=== PATIENT | female | born 1940 | race Caucasian/White ===

== ENCOUNTER 2019-07-28 06:54 | Outpatient (CLI) | payer MEDICARE ==
[~2019-07-28] VITALS: Ht 160 cm; Wt 61.4 kg
--- NOTE | ~2019-07-28 | HEMODYNAMI ---
PATIENT:AGUSTIN GILMORE MEDICAL RECORD: [id number] : 36 LOCATION:[facility] ADMISSION DATE: 07/28/19 Generatedon:07/28/20199:33 Patient name: AGUSTIN GILMORE Patient #: [id number] : 1940 Date of study: 07/28/2019 Page: Of Hemodynamic Procedure Report Patient Data Patient Demographics Procedure consent was obtained First Name: AGUSTIN Gender: Female Last Name: MANDO : 1940 Patient #: [id number] Age: 78 year(s) Race: Unknown SSN: [id number] Additional ID: [id number] Contact details Address: [address] [place] [address] State: [place] City: [place] Zip code: [address] Admission Admission Data Admission Date: 07/28/2019 Admission Time: 6:54 Admit Source: Other Insurance Payor: Medicare Height (in.): 63 BSA: 1.66 (m2) Height (cm.): 160.02 BMI: 24.62 (kg/m2) Weight (lbs.): 139 Weight (kg.): 63.05 Lab Results Lab Result Date: 07/28/2019 Lab Result Time: 0:00 Biochemistry Name Units Result Min Max BUN mg/dl 19 --(----)*- 7 18 Creatinine mg/dl 0.7 --(*---)-- 0.6 1.3 CBC Name Units Result Min Max Hemoglobin g/dl 12.8 -*(----)-- 13.5 17.5 Procedure Procedure Types Cath Procedure Diagnostic Procedure [facility] w/Coronaries Sedation Charges Moderate Sedation up to 15 minutes PCI Procedure Coronary Stent Coronary Stent Initial Procedure Description Procedure Date Procedure Date: 07/28/2019 Procedure Start Time: 8:56 Procedure End Time: 9:30 Procedure Staff Name Function Jaren Casper MD Performing Physician Roz Batista RN Nurse Renetta Mckinley RT Will Sanchez RT Monitor Procedure Data Cath Procedure Fluoroscopy Diagnostic fluoroscopy Total fluoroscopy Time: 3.8 time: 3.8 min min Diagnostic fluoroscopy Total fluoroscopy dose: 470 dose: 470 mGy mGy Contrast Material Contrast Material Type Amount (ml) Isovue 300 102 Entry Location Entry Primary Successful Side Size Upsize Upsize Entry Closure Succes sful Closure Location (Fr) 1 (Fr) 2 (Fr) Remarks Device Remarks Femoral Right 5 Fr 6 Fr Exoseal artery Short Estimated blood loss: 10 ml Diagnostic catheters Device Type Used For End Catheter Placement MULTIPACK JL 4.0 5Fr Procedure catheter MULTIPACK 3DRC 5Fr Procedure catheter MULTIPACK Pigtail 5 Fr Procedure catheter Procedure Complications No complications Procedure Medications Medication Administration Route Dosage 0.9% NaCl I.V. 100 ml/hr Oxygen etCO2 Nasal cannula 2 l/min Lidocaine 2% added to field 20 Heparin Flush Bag added to field 2 bags (1000units/500ml NS) Versed I.V. 2 mg Fentanyl I.V. 50 mcg Fentanyl I.V. 50 mcg Versed I.V. 1 mg Heparin Bolus I.V. 6000 units Plavix P.O. 600 mg Hemodynamics Rest BSA: 1.66 (m2) HGB: 12.8 (g/dl) O2 Consumption: Estimated: 156.34 (ml/min) O2 Co nsumption indexed: Estimated:94.18 (ml/min/m) Heart Rate: 81 (bpm) Pressure Samples Time Site Value (mmHg) Purpose Heart Use Rate(bpm) 9:05 LV 159/2,19 Snapshot 59 9:09 AO 168/67(111) Snapshot 79 Gradients Valve Time Site Site Mean SEP/DFP Peak To Heart Use 1 2 (mmHg) (sec/min) Peak Rate (mmHg) (bpm) Aortic 9:06 LV AO 78 Snapshots Pre Cath Intra NCS Post Cath Vital Signs Time Heart Resp SPO2 etCO2 NIBP (mmHg) Rhythm Pain Sedation Rate (ipm) (%) (mmHg) Status Level (bpm) 8:40:03 77 20 98 43 180/79(137) NSR 0 (11) 10(A) , No pain 8:44:24 77 13 100 44.4 167/80(142) NSR 0 (11) 10(A) , No pain 8:48:50 70 14 100 42.1 142/70(110) NSR 0 (11) 10(A) , No pain 8:53:10 68 16 100 29.3 129/61(95) NSR 0 (11) 10(A) , No pain 8:57:22 70 17 100 34.6 148/68(110) NSR 0 (11) 10(A) , No pain 9:01:36 79 14 100 45.9 159/83(124) NSR 0 (11) 10(A) , No pain 9:06:00 69 12 100 40.6 141/66(101) NSR 0 (11) 9(A) , No pain 9:10:14 77 13 100 41.4 152/75(108) NSR 0 (11) 9(A) , No pain 9:14:32 72 19 100 15 102/47(83) NSR 0 (11) 9(A) , No pain 9:18:40 73 15 99 39.9 113/54(88) NSR 0 (11) 10(A) , No pain 9:23:47 72 15 98 19.5 128/57(97) NSR 0 (11) 10(A) , No pain Medications Time Medication Route Dose Verified Delivered Reason Notes Effectiveness by by 8:41:24 0.9% NaCl I.V. 100 Jaren Roz used for ml/hr Tremayne Batista automat car attendant 8:41:30 Oxygen etCO2 2 Jaren Roz used for Nasal l/min Tremayne Batista procedure cannula RN 8:41:35 Lidocaine 2% added 20ml Jaren Jaren for local to vial Tremayne Casper MD anesthetic field 8:41:39 Heparin Flush added 2 Jaren Jaren used for Bag to bags Tremayne Casper MD procedure (1000units/500ml field NS) 8:53:48 Versed I.V. 2 mg Jaren Roz for sedation Tremayne Batista RN 8:53:53 Fentanyl I.V. 50 Jaren Roz for sedation mcg Tremayne Batista RN 9:00:21 Fentanyl I.V. 50 Jaren Roz for sedation mcg Tremayne Batista RN 9:00:28 Versed I.V. 1 mg Jaren Roz for sedation Tremayne Batista RN 9:13:03 Heparin Bolus I.V. 6000 Jaren Roz for verifi ed units Tremayne Batista anticoagulation with Dr. LATRELL Casper 9:21:01 Plavix P.O. 600 Jaren Roz for mg Tremayne Batista antiplatelet RN therapy Procedure Log Time Note 8:22:38 Patient Height : 63 inches 8:22:44 Patient Weight : 139 lbs 8:22:58 Insurance Payor : Medicare 8:22:59 Admit Source: Other 8:23:54 Lab Result : Hemoglobin 12.8 g/dl 8:23:54 Lab Result : Creatinine 0.7 mg/dl 8:23:54 Lab Result : BUN 19 mg/dl 8:24:31 Procedure Status Elective Heart Cath (OP). 8:24:33 Renetta Elías RT(R) sent for patient. Start room use. 8:25:05 Time tracking: Regular hours (M-F 7:00 - 5:00) 8:25:10 Plan of Care:Hemodynamics will remain stable., Cardiac rhythm will remain stable., Comfort level will be maintained., Respiratory function will remain adequate., Patient/ family verbilizes understanding of procedure., Procedure tolerated without complication., Recovers from procedure without complications.. 8:25:25 1) 90+ Normal kidney functon but urine findings or structural abnormalities or genetic trait point to kidney disease. 8:25:46 Maximum allowable contrast dose (3.7 X eGFR X 0.75)250 ml. 8:38:44 Patient received from Pre/Post Procedure Room to CCL 2 Alert and oriented. Tansferred to table in Supine position. 8:38:46 Signed procedure consent form obtained from patient. 8:38:47 Warm blankets applied, and suma hugger turned on for patient comfort. 8:38:48 Correct patient and procedure confirmed by team. 8:38:48 ECG and BP/O2 sat monitors applied to patient. 8:38:49 Vital chart was started 8:38:50 Baseline sample Acquired. 8:38:55 Rhythm: sinus rhythm 8:38:57 Full Disclosure recording started 8:39:01 H&P Date Dictated: 07/28/2019 Within 30 days and on chart., H&P Addendum completed by physician on day of procedure. (MUST COMPLETE FOR ALL OUTPATIENTS). 8:39:03 Pre-procedure instructions explained to patient. 8:39:03 Pre-op teaching completed and patient verbalized understanding. 8:39:04 Family in waiting room. 8:39:06 Patient NPO since Midnight. 8:39:13 Is the patient allergic to Iodine/contrast media? No. 8:39:15 Was the patient premedicated? No 8:39:26 Is patient on blood thinner?Yes 8:39:29 ACC The patient was administered the following blood thiners within the last 24 hours: ACCAspirin 8:39:39 Patient diabetic? No. 8:39:45 Previous problem with sedation/anesthesia? No ? 8:39:46 Snore? Yes 8:39:47 Sleep apnea? Yes 8:39:48 Deviated septum? No 8:39:49 Opens mouth fully? Yes 8:39:50 Sticks out tongue? Yes 8:39:56 Airway obstruction? Yes emphysema 8:40:01 Dentures? Yes out 8:40:55 Pre procedure: right dorsailis pedis pulse 1+ Palpable, but thready & weak; easily obliterated 8:41:00 Patient pain scale 0/10 ?. 8:41:10 IV patent on arrival in left antecubital with 0.9% NaCl at [facility]. 8:41:16 Lab results completed and on chart. 8:41:24 0.9% NaCl 100 ml/hr I.V. was administered by Roz Batista RN; used for procedure; Verbal order read back and verified. 8:41:29 Right groin area was prepped with chlora-prep and draped in sterile fashion 8:41:30 Oxygen 2 l/min etCO2 Nasal cannula was administered by Roz Batista RN; used for procedure; Verbal order read back and verified. 8:41:30 Alarms reviewed by R. N. 8:41:31 Sharps counted by scrub and verified by R.N. 8:41:35 Lidocaine 2% 20ml vial added to field was administered by Jaren Casper MD; for local anesthetic; Verbal order read back and verified. 8:41:39 Heparin Flush Bag (1000units/500ml NS) 2 bags added to field was administered by Jaren Casper MD; used for procedure; Verbal order read back and verified. 8:44:15 Use device set Femoral Dx 8:44:16 ACIST Syringe (36521) opened to sterile field. 8:44:16 Bag Decanter (2002S) opened to sterile field. 8:44:16 Medline Cath Pack ([id number]) opened to sterile field. 8:44:18 ACIST Hand Control (56394) opened to sterile field. 8:44:18 ACIST Manifold (13790) opened to sterile field. 8:44:20 DIAGNOSTIC Multipack 5Fr catheter set (YE3189) opened to sterile field. 8:44:22 SHEATH 5FR [place] (WIR020) opened to sterile field. 8:44:23 EMERALD Guide Wire (590-207) opened to sterile field. 8:50:35 Diagnostic Cath Status : Elective 8:53:00 Physician arrived 8:53:01 --------ALL STOP TIME OUT------ 8:53:02 Final Timeout: patient, procedure, and site verified with staff and physician. All members of the team are in agreement. 8:53:07 Right groin site verified by team. 8:53:11 Fire Safety Assessment: A--An alcohol-based skin anteseptic being used preoperatively., C--Open oxygen or nitrous oxide is being used., D--An ESU, laser, or fiber-optic light is being used. 8:53:48 Versed 2 mg I.V. was administered by Roz Batista RN; for sedation; Verbal order read back and verified. 8:53:53 Fentanyl 50 mcg I.V. was administered by Roz Batista RN; for sedation; Verbal order read back and verified. 8:56:06 Physical assessment completed. ASA score P 3 - A patient with severe systemic disease as per Jaren Casper MD. 8:56:11 Sedation plan: IV Moderate Sedation Medication:Versed, Fentanyl 8:56:15 Procedure started. 8:56:45 Local anesthetic to right femoral artery with Lidocaine 2% by Jaren Casper MD.INITIAL ACCESS ONLY 8:57:31 A 5 Fr sheath was inserted into the Right Femoral artery 9:00:21 Fentanyl 50 mcg I.V. was administered by Roz Batista RN; for sedation; Verbal order read back and verified. 9:00:28 Versed 1 mg I.V. was administered by Roz Batista RN; for sedation; Verbal order read back and verified. 9:00:53 A MULTIPACK JL 4.0 5Fr catheter was advanced over the wire and used for Procedure. 9:01:01 LCA angiography performed. 9:02:27 Catheter removed. 9:03:02 A MULTIPACK 3DRC 5Fr catheter was advanced over the wire and used for Procedure. 9:03:58 RCA angiography performed. 9:04:02 ACCDominant side:Left 9:04:06 Catheter removed. 9:04:13 A MULTIPACK Pigtail 5 Fr catheter was advanced over the wire and used for Procedure. 9:04:16 Tegaderm 4 x 4 (1626W) opened to sterile field. 9:06:13 LV gram done using MONTANEZ 9:06:19 EF : 60 % 9:06:30 GUIDE 6FR XBLAD 3.5 catheter ([id number]) opened to sterile field. 9:07:19 ASAHI open to field 9:07:22 SHEATH 6FR [place] (DTW075) opened to sterile field. 9:07:49 Catheter removed. 9:08:01 Sheath upsized to a 6 Fr Short. 9:09:15 TUBING High Pressure Extension Tubing (Tremayne) ([id number]) opened to sterile field. 9:09:16 INFLATOR Merit BasixCompak (AJ2783) opened to sterile field. 9:09:31 Pre PCI Site: [place] mLAD has 80% stenosis. 9:09:35 ACC Pre-intervention DHIRAJ Flow is 3. 9:09:45 6 Fr XBLAD3.5 guide catheter was inserted over the wire 9:09:50 Asahi wire advanced. 9:11:43 Wire advanced across lesion. 9:13:03 Heparin Bolus 6000 units I.V. was administered by Roz Batista RN; for anticoagulation; verified with Dr. Casper Verbal order read back and verified. 9:16:06 ACT drawn and resulted at 400 seconds. (normal therapeutic range 180-240 seconds). 9:18:57 Place stent Inflation Number: 1 A INTEGRITY RX 3.0 x 30 stent ([id number]) was prepped and advanced across the Prox LAD 80. The stent was deployed at 12 SHEELA for 0:16 (min:sec) 0. 9:19:23 EXOSEAL 6Fr (EX600) opened to sterile field. 9:19:49 Wire removed. 9:19:50 Guide catheter removed. 9:20:01 Sheath removed intact; hemostasis achieved with Exoseal to the Right Femoral artery. 9:20:03 Procedure ended.(Physican Out) 9:20:25 Fluoroscopy time 03.80 minutes. 9:20:52 Dose Area Product 18666 mGy/cm. 9:21: Plavix 600 mg P.O. was administered by Roz Batista RN; for antiplatelet therapy; Verbal order read back and verified. 9:21:05 Fluoroscopy dose: 470 mGy 9:21: Flurop Dose total: 470 9:21: Contrast amount:Isovue 300 102ml. 9:21:11 Maximum allowable dose exceeded? No. 9:21:12 Sharps counted by scrub and verified by R.N. 9:21:17 Insertion/operative site no bleeding no hematoma. 9:21:19 Post Procedure Pulses reassessed and unchanged 9:21:26 Post-procedure physical assessment completed. ASA score P 3 - A patient with severe systemic disease as per Jaren Casper MD. 9:21:30 Post procedure rhythm: unchanged. 9:21:33 Estimated blood loss: 10 ml 9:21:35 Post procedure instruction explained to patient.Patient verbalizes understanding. 9:22:02 Procedure type changed to Cath procedure, Diagnostic procedure, LHC, C w/Coronaries, Sedation Charges, Moderate Sedation up to 15 minutes, PCI procedure, Coronary Stent, Coronary Stent Initial 9:22:03 Procedure and supply charges have been captured, reviewed, submitted and are correct. 9:22:24 Procedure Complication : No complications 9:22:31 Vital chart was stopped 9:28:15 [facility] Findings: MVD- PCI performed (see procedure note) 9:30:15 Bleeding risk 3.8%. 9:30:24 Risk of Mortality: .1 9:30:28 Risk of blood transfusion: 3.8 9:30:32 Risk of KYE: 7.3 9:30:43 See physician's report for complete and final results. 9:30:45 Report given to Pre/Post Procedure Room. 9:30:48 Patient transfered to Pre/Post Procedure Room with Stretcher. 9:30:51 Procedure ended. 9:30:51 Full Disclosure recording stopped 9:31:20 ACC-PCI Only Patient was given prescriptions, or instructed by Jaren Casper MD to start/continue the following medications upon discharge: Plavix 9:31:21 End room use (Document Last) Intervention Summary Intervention Notes Time ActionType Lesion and Equipment Action# Pressure Duration Attributes Used 9:18:57 Place stent Prox LAD INTEGRITY RX 1 12 00:16 3.0 x 30 stent ([id number]) Device Usage Item Name Manufacture Quantity Catalog Hospital Part Current Minimal Lot# / Number Charge Number Stock Stock Serial# Code ACIST Acist 1 42621 500187 065589 573584 20 Syringe Medical (36738) Systems Inc Bag Decanter Microtek 1 2001S 745587 63154 636450 5 (2001S) Medical Inc. Medline Cath Medline 1 [id number] 220001 91990 732324 5 Pack ([id number]) ACIST Hand Acist 1 04883 864119 547879 679315 5 Control Medical (00928) Systems Inc ACIST Acist 1 71374 212083 888278 604900 5 Manifold Medical (18619) Systems Inc DIAGNOSTIC Cardinal 1 RW3009 292593 03970 944724 30 Multipack Health 5Fr catheter set (RH1590) SHEATH 5FR Terumo 1 GAD313 826793 717520 140747 5 [place] (MIB454) EMERALD Cardinal 1 502-455 653382 977873 682621 5 Guide Wire Health (502-455) MULTIPACK JL Cardinal 1 170761 5 4.0 5Fr Health catheter MULTIPACK Cardinal 1 734627 5 3DRC 5Fr Health catheter MULTIPACK Cardinal 1 668958 5 Pigtail 5 Fr Health catheter Tegaderm 4 x 3M 1 1626W 233340 878250 933440 5 4 (1626W) GUIDE 6FR Cardinal 1 [id number] 071553 506938 314128 10 XBLAD 3.5 Health catheter ([id number]) SHEATH 6FR Terumo 1 BZT413 408150 758232 513468 40 [place] (TUL398) TUBING High Merit 1 [id number] 613764 56348 468270 10 Pressure Medical Extension Tubing (Casper) (WV3811T) INFLATOR Merit 1 AU4875 679606 245496 130038 15 Merit Medical BasixCompak (LV9008) INTEGRITY RX Medtronic 1 [id number] 602392 498887 965511 5 [id number] 3.0 x 30 stent ([id number]) EXOSEAL 6Fr Cardinal 1 EX600 830917 756624 085556 10 (EX600) Health Signature Audit [place] Stage Time Signature Unsigned Intra-Procedure 07/28/2019 Mariam Sanchez 9:31:56 AM RT(R) Intra-Procedure 07/28/2019 Roz Batista 9:32:32 AM RN Intra-Procedure 07/28/2019 Jaren Casper MD 9:33:24 AM Signatures Performing Physician : Signature : Jaren Casper MD Date : Time : Nurse : Roz Batista RN Signature : Date : Time : Monitor : Mariam Sanchez Signature : RT Date : Time : [address] [id number]
[2019-07-28] MEDS ORDERED: HYDROCHLOROTH12.5 M1 PO (07:56)
[2019-07-28] MEDS ORDERED: BAYER CHEWABLE81 MG PO (07:56)
[2019-07-28] MEDS ORDERED: HYDROCODON-ACE1 EA10 PO (07:57)
[2019-07-28] MEDS ORDERED: LEXAPRO20 MG PO (07:58)
[2019-07-28] MEDS ORDERED: XANAX0.25 MG PO (07:58)
[2019-07-28] MEDS ORDERED: BREO ELLIPTA 11 EACH INH (07:59)
[2019-07-28] MEDS ORDERED: ALBUTEROL2.5 MG/3 M INH (08:00)
[2019-07-28 08:12] VITALS: BP 93/75; Ht 160 cm; Wt 61.4 kg
[2019-07-28 08:23] LABS: BASOPHILS 0.4 % (0-2); HEMATOCRIT 35.7 % (36.0-48.0); HEMOGLOBIN 11.8 g/dL (12-16); IMMATURE GRANULOCYTES 0.3 % (0-5); MCHC 33.1 g/dL (31.0-37.0); MCV 96.7 fL (80.0-100.0); MEAN PLATELET VOLUME 8.9 fL (7.4-10.4); MONOCYTES 8.5 % (2-11); NEUTROPHILS 58.8 % (40-80); PLATELET COUNT 392 10x3/uL (130-400); RBC 3.69 10x6/uL (4.00-5.40); RDW 12.4 % (11.5-14.5)
[2019-07-28 08:39] LABS: ANION GAP 6.9 mmol/L (8-16); CALCIUM 8.9 mg/dL (8.5-10.1); CHOL - HDL RATIO 2.5 ratio (2.3-4.1); CREATININE - SERUM 1.2 mg/dL (0.6-1.3); LDL-HDL RATIO 1.4 ratio (1.5-3.5); POTASSIUM - SERUM 3.9 mmol/L (3.5-5.1)
--- NOTE | 2019-07-28 09:40 | NUR ---
PT ARRIVED BY STRETCHER. PLACED ON MONITORS. ASSESSMENT COMPLETED. FAMILY AT BEDSIDE. DR. DEJESUS AT BEDSIDE.
--- NOTE | 2019-07-28 09:55 | NUR ---
RIGHT GROIN DRESSING C/D/I. NO S/S OF HEMATOMA NOTED. CALL LIGHT WITHIN REACH. RIGHT PEDAL PULSE PALPABLE. FAMILY AT BEDSIDE. VSS. NO NEEDS AT THIS TIME.
[2019-07-28] MEDS ORDERED: PLAVIX75 MG PO (10:03)
--- NOTE | 2019-07-28 10:25 | NUR ---
RIGHT GROIN DRESSING C/D/I. NO S/S OF HEMATOMA NOTED. CALL LIGHT WITHIN REACH. FAMILY AT BEDSIDE. VSS. RIGHT PEDAL PULSE PALPABLE.
--- NOTE | 2019-07-28 10:56 | NUR ---
PT C/O NAUSEA. COOL CLOTH TO HEAD. IV ZOFRAN GIVEN. PT REPOSITIONED AND LOG ROLLED TO LEFT SIDE FOR PT COMFORT. CALL LIGHT WITHIN REACH. VSS. RIGHT GROIN DRESSING C/D/I. NO S/S OF HEMATOMA NOTED.
--- NOTE | 2019-07-28 11:13 | NUR ---
PT REPORTS THAT HER NAUSEA IS BETTER. STILL HAVING BACK PAIN (SHE HAS CHRONIC BACK PAIN). NOTIFIED DR. DEJESUS. ORDERS RECEIVED.
--- NOTE | 2019-07-28 11:45 | NUR ---
PT REPORTS PAIN IS IMPROVED. RATES IT A 12/19. VSS. RIGHT GROIN DRESSING C/D/I. NO S/S OF HEMATOMA NOTED.
--- NOTE | 2019-07-28 12:10 | NUR ---
RIGHT GROIN DRESSSING SOFT TO TOUCH. NO S/S OF HEMATOMA NOTED. VSS. FAMILY AT BEDSIDE. CALL LIGHT WITHIN REACH.
--- NOTE | 2019-07-28 12:30 | NUR ---
PT'S HEAD OF BED INC TO 30 DEGREES. TOLERATED WELL. RIGHT GROIN DRESSING C/D/I. NO S/S OF HEMATOMA NOTED. PT EATING SANDWICH. DENIES NAUSEA/PAIN AT THIS TIME. WILL CONTINUE TO MONITOR.
--- NOTE | 2019-07-28 13:10 | NUR ---
RIGHT GROIN DRESSING C/D/I. NO S/S OF HEMATOMA NOTED. PIV D/C'D WITH CATH TIP INTACT. TOLERATED WELL. PT INSTRUCTED TO GET UP AND DRESSED. AMBULATED TO RESTROOM AND VOIDED WITHOUT DIFFICULTY. BACK TO ROOM.
--- NOTE | 2019-07-28 13:20 | NUR ---
DISCUSSED DISCHARGE INSTRUCTIONS WITH PT AND PT'S FAMILY. THEY VOICED UNDERSTANDING.
--- NOTE | 2019-07-28 13:30 | NUR ---
PT TAKEN TO VEHICLE BY WHEELCHAIR. NO S/S OF DISTRESS NOTED. ALL BELONGINGS AND PAPERWORK IN HAND.
== END 2019-07-28 13:30 | disposition home or self-care (01) ==
LOC: D.CATH 06:54
PROVIDERS: ATTEND Internal Medicine Cardiovascular Disease
DX: I25.110 Atherosclerotic heart disease of native coronary artery with unstable angina pectoris (principal); R06.02 Shortness of breath